=== PATIENT | female | born 1980 | race Caucasian/White ===

== ENCOUNTER 2016-09-15 22:17 | Emergency (ER) | payer MEDICAID, OTHER ==
[~2016-09-15] VITALS: Ht 162.6 cm; Wt 53.1 kg
--- NOTE | 2016-09-15 23:04 | NUR ---
ERMD at bedside for MSE.
[2016-09-15] MEDS ORDERED: ONDANSETRON ODT 4 MG TAB.RAPDIS SL ONE (23:15)
[2016-09-15] MEDS ORDERED: HYDROCODONE/APAP 10-325 MG TABLET PO ONE (23:15)
[2016-09-15 23:36] LABS: CALCIUM 8.9 mg/dL (8.5-10.1); CREATININE 0.8 mg/dL (0.6-1.3); POTASSIUM 3.8 mmol/L (3.5-5.1)
[2016-09-15 23:39] LABS: BASOPHILS # (AUTO) 0.1 K/uL (0.0-0.2); BASOPHILS % (AUTO) 0.6 % (0.0-2.0); EOSINOPHILS # (AUTO) 0.2 K/uL (0.0-0.7); HEMOGLOBIN 10.5 g/dL (12.0-16.0); LYMPHOCYTES # (AUTO) 2.3 K/uL (0.8-4.8); LYMPHOCYTES % (AUTO) 20.8 % (20.5-51.5); MEAN CORPUSCULAR HEMOGLOBIN 22.8 uug (27.0-31.0); MEAN CORPUSCULAR HGB CONC 32 g/dL (32.0-37.0); MEAN CORPUSCULAR VOLUME 71.9 fL (81.0-99.0); MONOCYTES # (AUTO) 0.8 K/uL (0.1-1.30); MONOCYTES % (AUTO) 7.3 % (0.0-11.0); NEUTROPHILS # (AUTO) 7.6 K/uL (1.8-8.9); NEUTROPHILS % (AUTO) 69.3 % (38.5-71.5); PLATELET COUNT (AUTO) 288 K/uL (150-450); RED BLOOD CELL COUNT(AUTO) 4.59 MIL/uL (4.20-5.40); RED CELL DISTRIBUTION WIDTH 14.5 % (11.5-14.5)
[2016-09-15] MEDS ORDERED: HYDROCODONE/APAP 10-325 MG TABLET ONE (23:39)
[2016-09-15] MEDS ORDERED: ONDANSETRON ODT 4 MG TAB.RAPDIS ONE (23:39)
[2016-09-16] MEDS ORDERED: KETOROLAC TROMETHAMINE 30 MG INJ IVP ONE (00:45)
[2016-09-16 01:09] LABS: *URINE HCG, QUAL NEGATIVE (NEGATIVE)
[2016-09-16] MEDS ORDERED: KETOROLAC TROMETHAMINE 30 MG INJ ONE (01:18)
[2016-09-16 01:21] VITALS: BP 107/67
--- NOTE | 2016-09-16 01:21 | NUR ---
Patient discharged to home in stable conditon. Written and verbal after care instructions given. Patient verbalizes understanding of instructions.
== END 2016-09-16 01:21 | disposition home or self-care (01) ==
LOC: ER 22:17
DX: R51 Headache (principal); D64.9 Anemia, unspecified; R11.0 Nausea; F10.20 Alcohol dependence, uncomplicated; F17.200 Nicotine dependence, unspecified, uncomplicated
CPT/HCPCS: 36415; 70450; 84703; 85025; 85730; 93005; A4663; J1885; Q0162